=== PATIENT | male | born 1960 | race Two or more races ===

== ENCOUNTER 2023-10-23 17:33 | Inpatient (IN) | payer SELFPAY ==
[~2023-10-23] VITALS: Ht 167.6 cm; Wt 64.4 kg
[2023-10-23 18:26] LABS: BASOPHILS % 0.5 % (0.0-2.0); EOSINOPHILS % 1.2 % (0.0-5.0); HEMATOCRIT. 42.9 % (42.0-52.0); HEMOGLOBIN. 13.4 g/dL (14.0-18.0); LYMPHOCYTES % 20.2 % (20.0-50.0); MEAN CORPUSCULAR HEMOGLOBIN 29.3 pg (28.0-32.0); MEAN CORPUSCULAR HGB CONC 31.3 g/dL (31.0-37.0); MEAN CORPUSCULAR VOLUME 93.7 fL (80.0-94.0); MEAN PLATELET VOLUME 7.7 fl (7.4-10.4); MONOCYTES % 5.1 % (2.0-8.0); PLATELET 153 x1000/uL (130-400); RED BLOOD CELL COUNT 4.58 mill/uL (4.7-6.1); RED CELL DISTRIBUTION WIDTH 14.6 % (11.6-14.6); WHITE BLOOD COUNT 12.6 x1000/uL (4.5-11.0)
[2023-10-23 18:32] LABS: CHLORIDE 120 mEq/L (98-107); POTASSIUM 3.4 mEq/L (3.5-5.1); SODIUM 145 mEq/L (136-145)
[2023-10-23 18:33] LABS: CARBON DIOXIDE 11 mEq/L (21-32)
[2023-10-23 18:36] LABS: INR 1.1; PROTHROMBIN TIME 12.4 sec (9.6-11.0)
[2023-10-23 18:38] LABS: CREATININE 0.9 mg/dL (0.6-1.3); GLUCOSE 225 mg/dL (70-105); UREA NITROGEN BLOOD 10 mg/dL (9-23)
[2023-10-23 18:40] LABS: ALANINE AMINOTRANSFERASE 77 IU/L (10-49); ALBUMIN 2.8 g/dL (3.2-4.8); ASPARTATE AMINOTRANSFERASE 81 IU/L (<34)
[2023-10-23 18:41] LABS: BILIRUBIN TOTAL 0.2 mg/dL (0.1-1.0); PROTEIN TOTAL 4.4 g/dL (6.0-8.3)
[2023-10-23 18:46] LABS: CALCIUM 5.6 mg/dL (8.7-10.4); ETHANOL BLOOD < 10 mg/dL (<10); LACTIC ACID 7.4 mmol/L (0.4-2.0); TROPONIN I HIGH SENSITIVITY 351 ng/L (3.0-53)
[2023-10-23] MEDS: SODIUM CHLORIDE 0.9% 1,000 ML IV ONE (20:42)
[2023-10-23] MEDS ORDERED: SODIUM CHLORIDE 0.9% 500 ML IV ONE (21:00)
[2023-10-23] MEDS: TENECTEPLASE 50MG/VIAL (FOR MI OR PE) IV NR (21:44)
[2023-10-23] MEDS ORDERED: HEPARIN 80 UNITS/KG BOLUS IV SCH (22:00)
[2023-10-23] MEDS: HEPARIN 25,000 UNITS PREMIX 250 ML IV SCH (23:03)
[2023-10-23] MEDS ORDERED: IOHEXOL-350 100 ML BOTTLE ONE (23:34)
[2023-10-24] VITALS (78 sets, daily range): BP systolic 91–141; BP diastolic 60–105; PULSE 77–104; RESP 8–33; TEMP 36.6696–37.00296; O2SAT 96–100
[2023-10-24 00:25] LABS: CLARITY URINE CLEAR (CLEAR); COLOR URINE YELLOW (YELLOW); SPECIFIC GRAVITY URINE 1.044 (1.005-1.030)
[2023-10-24 00:26] LABS: GLUCOSE URINE NEGATIVE (NEGATIVE); KETONES URINE NEGATIVE (NEGATIVE); LEUKOCYTE ESTERASE URINE NEGATIVE (NEGATIVE); NITRITE URINE NEGATIVE (NEGATIVE); OCCULT BLOOD URINE 2+ (NEGATIVE); PH URINE 5.5 (4.5-8.0); PROTEIN URINE TRACE (NEGATIVE); UROBILINOGEN URINE 0.2 E.U./dL (0.2-1.0)
[2023-10-24] MEDS ORDERED: DOCUSATE SODIUM 100MG CAPSULE PO PRN (00:30)
[2023-10-24] MEDS ORDERED: ONDANSETRON HCL 4MG/2ML INJ IV PRN (00:30)
[2023-10-24] MEDS ORDERED: IPRATROPIUM/ALBUTEROL 0.5-3(2.5)MG/3ML NEB HHN PRN (00:30)
[2023-10-24] MEDS ORDERED: ACETAMINOPHEN 325MG TABLET PO PRN (00:30)
[2023-10-24] MEDS ORDERED: GUAIFENESIN 200MG/10ML SUGAR FREE UDC PO PRN (00:30)
[2023-10-24] MEDS: CALCIUM GLUCONATE 100MG/ML 10ML VIAL IV ONE (00:32)
[2023-10-24 00:49] LABS: TROPONIN I HIGH SENSITIVITY 15740 ng/L (3.0-53)
[2023-10-24 00:54] LABS: BACTERIA URINE TRACE; RBC URINE 15-25 /hpf (0-2); SQUAMOUS EPITHELIAL CELL URINE FEW /lpf (RARE/1+); WBC URINE 0-2 /hpf (0-2)
[2023-10-24] MEDS ORDERED: DEXTROSE 50% WATER 50ML SYRINGE IV PRN (02:30)
[2023-10-24] MEDS: LACTATED RINGERS 1,000 ML IV SCH (02:34)
[2023-10-24] MEDS: POTASSIUM CHLORIDE 20MEQ TABLET SR PO NR (02:36)
[2023-10-24 03:49] LABS: IRON 99 ug/dL (65-175)
[2023-10-24 03:50] LABS: LDL CHOLESTEROL 102 mg/dL (5-100); TRIGLYCERIDE 77 mg/dL (0-150)
[2023-10-24 03:51] LABS: HDL CHOLESTEROL 42 mg/dL (>55)
[2023-10-24 03:52] LABS: CHOLESTEROL 142 mg/dL (<200); TOTAL IRON BINDING CAPACITY 317 ug/dl (250-425)
[2023-10-24 03:54] LABS: T4 FREE 1.19 ng/dL (0.89-1.76)
[2023-10-24 03:55] LABS: THYROID STIMULATING HORMONE 1.34 uIU/mL (0.55-4.78)
[2023-10-24] MEDS ORDERED: HEPARIN BOLUS PRN aPTT <36 IV (04:00)
[2023-10-24] MEDS ORDERED: HEPARIN BOLUS PRN aPTT 37-44 IV (04:00)
[2023-10-24 05:02] LABS: *AMPHETAMINES SCREEN URINE NEGATIVE (NEGATIVE)
[2023-10-24 05:03] LABS: *BARBITURATES SCREEN URINE NEGATIVE (NEGATIVE); *BENZODIAZEPINES SCREEN URINE NEGATIVE (NEGATIVE); *COCAINE SCREEN URINE NEGATIVE (NEGATIVE); METHADONE URINE SCREEN NEGATIVE (NEGATIVE); OPIATES URINE SCREEN NEGATIVE (NEGATIVE); PHENCYCLIDINE URINE SCREEN NEGATIVE (NEGATIVE)
[2023-10-24 05:04] LABS: CANNABINOID URINE SCREEN NEGATIVE (NEGATIVE); ECSTASY MDMA SCREEN URINE NEGATIVE (NEGATIVE)
[2023-10-24 05:21] LABS: CLARITY URINE TURBID (CLEAR); COLOR URINE BROWN (YELLOW); SPECIFIC GRAVITY URINE 1.023 (1.005-1.030)
[2023-10-24 05:22] LABS: GLUCOSE URINE NEGATIVE (NEGATIVE); KETONES URINE NEGATIVE (NEGATIVE); PROTEIN URINE TRACE (NEGATIVE)
[2023-10-24 05:23] LABS: OCCULT BLOOD URINE 2+ (NEGATIVE)
[2023-10-24 05:24] LABS: LEUKOCYTE ESTERASE URINE 2+ (NEGATIVE); NITRITE URINE NEGATIVE (NEGATIVE); UROBILINOGEN URINE 0.2 E.U./dL (0.2-1.0)
[2023-10-24 05:36] LABS: BACTERIA URINE 1+; RBC URINE TNTC /hpf (0-2); SQUAMOUS EPITHELIAL CELL URINE NONE SEEN /lpf (RARE/1+)
[2023-10-24 05:55] LABS: BASOPHILS % 0.6 % (0.0-2.0); EOSINOPHILS % 0.2 % (0.0-5.0); HEMATOCRIT. 39.8 % (42.0-52.0); HEMOGLOBIN. 13.1 g/dL (14.0-18.0); LYMPHOCYTES % 19.6 % (20.0-50.0); MEAN CORPUSCULAR HEMOGLOBIN 30.5 pg (28.0-32.0); MEAN CORPUSCULAR HGB CONC 32.8 g/dL (31.0-37.0); MEAN CORPUSCULAR VOLUME 92.9 fL (80.0-94.0); MONOCYTES % 10.4 % (2.0-8.0); NEUTROPHILS % 69.2 % (40.0-76.0); PLATELET 130 x1000/uL (130-400); RED BLOOD CELL COUNT 4.28 mill/uL (4.7-6.1); RED CELL DISTRIBUTION WIDTH 14.3 % (11.6-14.6); WHITE BLOOD COUNT 8.5 x1000/uL (4.5-11.0)
[2023-10-24 06:04] LABS: CREATINE KINASE 504 IU/L (46-171)
[2023-10-24 06:09] LABS: CALCIUM 8.9 mg/dL (8.7-10.4); CARBON DIOXIDE 24 mEq/L (21-32); CHLORIDE 111 mEq/L (98-107); SODIUM 141 mEq/L (136-145)
[2023-10-24 06:14] LABS: CREATININE 1.2 mg/dL (0.6-1.3); GLUCOSE 90 mg/dL (70-105); TROPONIN I HIGH SENSITIVITY 22633 ng/L (3.0-53)
[2023-10-24 06:15] LABS: UREA NITROGEN BLOOD 14 mg/dL (9-23)
[2023-10-24 06:17] LABS: PHOSPHORUS 3.7 mg/dL (2.5-4.9); PREALBUMIN 20.3 mg/dl (10.0-40.0)
[2023-10-24 06:18] LABS: POTASSIUM 5.4 mEq/L (3.5-5.1)
[2023-10-24] MEDS ORDERED: BLOOD SUGAR DIAGNOSTIC STRIP TEST SCH (06:30)
[2023-10-24] MEDS ORDERED: INSULIN LISPRO 100 UNITS/ML SUBCUT SCH (07:00)
[2023-10-24] MEDS: SODIUM ZIRCONIUM CYCLOSILICATE 10GM/PACKET PO NR (08:08)
[2023-10-24] MEDS: SODIUM CHLORIDE 0.45% 1,000 ML IV SCH (08:08)
[2023-10-24] MEDS: FAMOTIDINE 20MG/2ML VIAL IV SCH (08:12)
[2023-10-24] MEDS ORDERED: PANTOPRAZOLE SODIUM 40 MG/VIAL IV SCH (09:00)
[2023-10-24 09:45] LABS: CLARITY URINE CLOUDY (CLEAR); COLOR URINE BLOODY (YELLOW)
[2023-10-24 09:46] LABS: GLUCOSE URINE NEGATIVE (NEGATIVE); KETONES URINE NEGATIVE (NEGATIVE); OCCULT BLOOD URINE 3+ (NEGATIVE); PROTEIN URINE 2+ (NEGATIVE)
[2023-10-24 09:47] LABS: LEUKOCYTE ESTERASE URINE NEGATIVE (NEGATIVE); NITRITE URINE NEGATIVE (NEGATIVE); UROBILINOGEN URINE 0.2 E.U./dL (0.2-1.0)
[2023-10-24 09:50] LABS: RBC URINE TNTC /hpf (0-2)
[2023-10-24 10:03] LABS: WBC URINE 15-25 /hpf (0-2)
[2023-10-24 10:04] LABS: BACTERIA URINE 4+; SQUAMOUS EPITHELIAL CELL URINE NONE SEEN /lpf (RARE/1+)
[2023-10-24] MEDS: CEFTRIAXONE 1GM/50ML 50 ML IV SCH (10:15)
[2023-10-24 13:34] LABS: TROPONIN I HIGH SENSITIVITY 8064 ng/L (3.0-53)
[2023-10-24 16:43] LABS: POTASSIUM 3.9 mEq/L (3.5-5.1)
[2023-10-24] MEDS: ATORVASTATIN CALCIUM 40MG TABLET PO SCH (20:24)
[2023-10-24 22:48] LABS: TROPONIN I HIGH SENSITIVITY 4045 ng/L (3.0-53)
[2023-10-25] VITALS (85 sets, daily range): BP systolic 95–134; BP diastolic 52–86; PULSE 60–102; RESP 10–35; TEMP 36.72516–37.00296; O2SAT 96–100
[2023-10-25 01:35] LABS: TROPONIN I HIGH SENSITIVITY 3545 ng/L (3.0-53)
[2023-10-25 06:57] LABS: BASOPHILS % 1.1 % (0.0-2.0); EOSINOPHILS % 1.9 % (0.0-5.0); HEMATOCRIT. 36.1 % (42.0-52.0); HEMOGLOBIN. 11.9 g/dL (14.0-18.0); LYMPHOCYTES % 23.1 % (20.0-50.0); MEAN PLATELET VOLUME 7.8 fl (7.4-10.4); MONOCYTES % 8.8 % (2.0-8.0); NEUTROPHILS % 65.1 % (40.0-76.0); PLATELET 138 x1000/uL (130-400); RED BLOOD CELL COUNT 3.97 mill/uL (4.7-6.1); RED CELL DISTRIBUTION WIDTH 14.1 % (11.6-14.6); WHITE BLOOD COUNT 6.8 x1000/uL (4.5-11.0)
[2023-10-25 07:01] LABS: CARBON DIOXIDE 27 mEq/L (21-32); CHLORIDE 110 mEq/L (98-107); SODIUM 140 mEq/L (136-145)
[2023-10-25 07:02] LABS: CALCIUM 8.7 mg/dL (8.7-10.4)
[2023-10-25 07:06] LABS: CREATININE 1.1 mg/dL (0.6-1.3); GLUCOSE 88 mg/dL (70-105)
[2023-10-25 07:07] LABS: UREA NITROGEN BLOOD 8 mg/dL (9-23)
[2023-10-25 07:09] LABS: PHOSPHORUS 3.4 mg/dL (2.5-4.9)
[2023-10-25] MEDS ORDERED: MIDAZOLAM HCL 2 MG/2 ML VIAL ONE (13:20)
[2023-10-25] MEDS ORDERED: LIDOCAINE HCL 1% 20ML VIAL ONE (13:20)
[2023-10-25] MEDS ORDERED: IODIXANOL 320 MG/ML 150ML BOTTLE IV ONE (13:20)
[2023-10-25] MEDS ORDERED: FENTANYL CITRATE/PF 50MCG/ML 2ML VIAL ONE (13:21)
[2023-10-25] MEDS ORDERED: HEPARIN 1000 UNITS/ML 10ML ONE (13:21)
[2023-10-25] MEDS ORDERED: MIDAZOLAM HCL 5 MG/5 ML VIAL ONE ×2 (13:21→13:50)
[2023-10-25] MEDS: ACETAMINOPHEN 325MG TABLET PO PRN (15:02)
[2023-10-25] MEDS: APIXABAN 5 MG TABLET PO SCH (20:48)
[2023-10-25] MEDS ORDERED: APIXABAN 5 MG TABLET PO SCH (21:00)
[2023-10-26] VITALS (19 sets, daily range): BP systolic 105–134; BP diastolic 48–100; PULSE 67–96; RESP 9–33; TEMP 36.3918–36.72516; O2SAT 97–100
[2023-10-26 04:50] LABS: BASOPHILS % 0.6 % (0.0-2.0); HEMATOCRIT. 34.2 % (42.0-52.0); HEMOGLOBIN. 11.4 g/dL (14.0-18.0); LYMPHOCYTES % 19.9 % (20.0-50.0); MEAN CORPUSCULAR HEMOGLOBIN 30.3 pg (28.0-32.0); MEAN CORPUSCULAR HGB CONC 33.4 g/dL (31.0-37.0); MEAN CORPUSCULAR VOLUME 90.9 fL (80.0-94.0); MEAN PLATELET VOLUME 7.9 fl (7.4-10.4); MONOCYTES % 10.5 % (2.0-8.0); PLATELET 148 x1000/uL (130-400); RED BLOOD CELL COUNT 3.77 mill/uL (4.7-6.1); RED CELL DISTRIBUTION WIDTH 14.2 % (11.6-14.6); WHITE BLOOD COUNT 5.9 x1000/uL (4.5-11.0)
[2023-10-26 05:00] LABS: CARBON DIOXIDE 25 mEq/L (21-32); CHLORIDE 110 mEq/L (98-107); POTASSIUM 4.2 mEq/L (3.5-5.1); SODIUM 141 mEq/L (136-145)
[2023-10-26 05:01] LABS: CALCIUM 8.3 mg/dL (8.7-10.4)
[2023-10-26 05:05] LABS: CREATININE 1.1 mg/dL (0.6-1.3)
[2023-10-26 05:06] LABS: GLUCOSE 91 mg/dL (70-105); UREA NITROGEN BLOOD 10 mg/dL (9-23)
[2023-10-26 05:08] LABS: PHOSPHORUS 3.5 mg/dL (2.5-4.9)
[2023-10-26] MEDS ORDERED: APIX5TAB PO (14:56)
[2023-10-26] MEDS ORDERED: FAMO-135 PO (14:56)
[2023-10-26] MEDS ORDERED: LIP40 PO (14:56)
[2023-10-27 04:00] VITALS: BP 100/60; RESP 18; TEMP 35.94732; O2SAT 98
[2023-10-27 06:30] LABS: BASOPHILS % 0.7 % (0.0-2.0); EOSINOPHILS % 4.6 % (0.0-5.0); HEMATOCRIT. 38.4 % (42.0-52.0); HEMOGLOBIN. 12.7 g/dL (14.0-18.0); LYMPHOCYTES % 22.7 % (20.0-50.0); MEAN CORPUSCULAR HEMOGLOBIN 30.3 pg (28.0-32.0); MEAN CORPUSCULAR HGB CONC 33.2 g/dL (31.0-37.0); MEAN CORPUSCULAR VOLUME 91.2 fL (80.0-94.0); MEAN PLATELET VOLUME 8.1 fl (7.4-10.4); PLATELET 210 x1000/uL (130-400); RED BLOOD CELL COUNT 4.21 mill/uL (4.7-6.1); RED CELL DISTRIBUTION WIDTH 14.1 % (11.6-14.6); WHITE BLOOD COUNT 5.4 x1000/uL (4.5-11.0)
[2023-10-27 06:33] LABS: CHLORIDE 107 mEq/L (98-107); POTASSIUM 4.3 mEq/L (3.5-5.1); SODIUM 140 mEq/L (136-145)
[2023-10-27 06:35] LABS: CALCIUM 8.9 mg/dL (8.7-10.4); CARBON DIOXIDE 26 mEq/L (21-32)
[2023-10-27 06:40] LABS: CREATININE 1.2 mg/dL (0.6-1.3); GLUCOSE 89 mg/dL (70-105); UREA NITROGEN BLOOD 10 mg/dL (9-23)
[2023-10-27 08:00] VITALS: BP 122/79; PULSE 76; RESP 19; TEMP 36.83628; O2SAT 99
[2023-10-27 10:40] VITALS: BP 115/76; PULSE 77; TEMP 98.1; O2SAT 98
[2023-10-27 12:00] VITALS: BP 115/76; PULSE 77; RESP 18; TEMP 36.72516; O2SAT 98
[2023-11-02] MEDS ORDERED: APIXABAN 5 MG TABLET PO SCH (21:00)
== END 2023-10-27 12:45 | disposition home or self-care (01) | DRG 134 ==
LOC: ER 17:33 → EDBEDREQTM 21:10 → EDBEDREQSVC 21:10 → MICUSO 21:38 → EDBEDREQ 21:45 → EDBEDREQTM 21:45 → MICUNO 10-25 23:23 → 3WST 10-26 17:04
PROVIDERS: ADMIT Hospitalist; ATTEND Hospitalist
PROC: B5191ZZ Fluoroscopy of Inferior Vena Cava using Low Osmolar Contrast (ICD-10-PCS; principal; 2023-10-25)
PROC: B31T1ZZ Fluoroscopy of Left Pulmonary Artery using Low Osmolar Contrast (ICD-10-PCS; 2023-10-25)
PROC: B31S1ZZ Fluoroscopy of Right Pulmonary Artery using Low Osmolar Contrast (ICD-10-PCS; 2023-10-25)
PROC: 4A023N6 Measurement of Cardiac Sampling and Pressure, Right Heart, Percutaneous Approach (ICD-10-PCS; 2023-10-25)
PROC: B54BZZZ Ultrasonography of Right Lower Extremity Veins (ICD-10-PCS; 2023-10-25)
PROC: 02CP3ZZ Extirpation of Matter from Pulmonary Trunk, Percutaneous Approach (ICD-10-PCS; 2023-10-25)
PROC: 02CR3ZZ Extirpation of Matter from Left Pulmonary Artery, Percutaneous Approach (ICD-10-PCS; 2023-10-25)
PROC: 02CQ3ZZ Extirpation of Matter from Right Pulmonary Artery, Percutaneous Approach (ICD-10-PCS; 2023-10-25)
DX: I26.02 Saddle embolus of pulmonary artery with acute cor pulmonale (principal); N17.0 Acute kidney failure with tubular necrosis; J96.01 Acute respiratory failure with hypoxia; R57.8 Other shock; I21.A1 Myocardial infarction type 2; E44.0 Moderate protein-calorie malnutrition; R57.0 Cardiogenic shock; E87.20 Acidosis, unspecified; D64.9 Anemia, unspecified; E87.6 Hypokalemia; N39.0 Urinary tract infection, site not specified; I82.431 Acute embolism and thrombosis of right popliteal vein; I82.432 Acute embolism and thrombosis of left popliteal vein; I25.10 Atherosclerotic heart disease of native coronary artery without angina pectoris; I82.412 Acute embolism and thrombosis of left femoral vein; E83.51 Hypocalcemia; R73.9 Hyperglycemia, unspecified; I82.403 Acute embolism and thrombosis of unspecified deep veins of lower extremity, bilateral; K59.00 Constipation, unspecified; R31.0 Gross hematuria; Z79.01 Long term (current) use of anticoagulants; Z68.22 Body mass index [BMI] 22.0-22.9, adult
CPT/HCPCS: 36415; 37184; 71045; 71275; 75743; 76770; 80048; 80053; 80061; 80305; 80320; 81003; 82306; 82550; 82728; 82962; 83036; 83540; 83550; 83605; 83735; 83880; 84100; 84132; 84134; 84145; 84439; 84443; 84484; 85025; 85347; 85384; 86850; 86900; 93005; 93306; 93970; 99291; C1766; C1769; C1887; C1893; J0610; J0696; J1644; J2250; J3010; J3101; J3490; J7030; J7040; Q9967; C1757; G0480